=== PATIENT | male | born 1985 | race Caucasian/White ===

== ENCOUNTER 2017-12-18 00:26 | Emergency (ER) | payer MEDICARE, OTHER ==
[~2017-12-18] VITALS: Ht 188 cm; Wt 120.8 kg
[2017-12-18 04:05] VITALS: BP 138/61
== END 2017-12-18 04:07 | disposition home or self-care (01) ==
LOC: ER 00:26
DX: S63.501A Unspecified sprain of right wrist, initial encounter (principal); Z88.0 Allergy status to penicillin; Z88.6 Allergy status to analgesic agent; W22.8XXA Striking against or struck by other objects, initial encounter; Y93.89 Activity, other specified; Y92.89 Other specified places as the place of occurrence of the external cause; Y99.8 Other external cause status
CPT/HCPCS: 29125; 73130; 99284; A4565; A6449

== ENCOUNTER 2017-12-19 22:14 | Emergency (ER) | payer MEDICARE, OTHER ==
[~2017-12-19] VITALS: Ht 190.5 cm; Wt 97.0 kg
[2017-12-19 23:29] VITALS: BP 128/77
== END 2017-12-20 01:19 | disposition home or self-care (01) ==
LOC: ER 22:14
DX: M79.641 Pain in right hand (principal); Z88.6 Allergy status to analgesic agent; Z88.0 Allergy status to penicillin
CPT/HCPCS: 99281

== ENCOUNTER 2017-12-27 13:06 | Outpatient (CLI) | payer MEDICARE, OTHER ==
[2017-12-27 13:13] VITALS: BP 153/86
== END 2017-12-27 14:00 | disposition home or self-care (01) ==
LOC: ORTHO 13:06
PROVIDERS: ATTEND Nurse Practitioner Family
DX: S52.611A Displaced fracture of right ulna styloid process, initial encounter for closed fracture (principal); S63.259A Unspecified dislocation of unspecified finger, initial encounter; S63.501A Unspecified sprain of right wrist, initial encounter; F17.210 Nicotine dependence, cigarettes, uncomplicated; F12.90 Cannabis use, unspecified, uncomplicated; Z88.0 Allergy status to penicillin; Z88.6 Allergy status to analgesic agent; X58.XXXA Exposure to other specified factors, initial encounter; Y93.89 Activity, other specified; Y92.89 Other specified places as the place of occurrence of the external cause; Y99.8 Other external cause status
CPT/HCPCS: 99213